=== PATIENT | female | born 1940 | race Caucasian/White ===

== ENCOUNTER → 2017-05-31 | Day surgery (SDC) | payer MEDICARE ==
[2017-05-31] VITALS (9 sets, daily range): BP systolic 116–135; BP diastolic 65–87; PULSE 60–90; RESP 13–18; O2SAT 86–100
[~2017-05-31] VITALS: Ht 157.5 cm; Wt 70.3 kg
[~2017-05-31] MED LIST: Atropine 0.4 mg/mL Inj IVPUSH PRN; BUPR100T8 PO; Bupivacaine-MPF 0.25%/EPI 30 mL Inj INJ ONE; CHOL-4 PO; CeFAZolin Inj 2 GM in IV Premix 1 EACH IV SCH; Dexamethasone 4 mg/mL Inj INTRARTICU ONE; Dexamethasone 4 mg/mL Inj ONE; EPHEDrine Sulfate 50 mg/mL Inj IVPUSH PRN; EPHEDrine/NS 5 mg/mL 5 mL Syringe ONE; ESCI10TA52 PO; GABA-502 PO; GLUT500C6 PO; HYDROcodone-APAP 5-325 mg Tablet PO ONE; HYDROmorphone 1 mg/mL Inj IVPUSH PRN; LOSA50TA37 PO; Labetalol 5 mg/mL 4 mL Inj IV PRN; Lactated Ringer's 1,000 ML IV ONE; Lactated Ringer's 1,000 ML IV SCH; Lactated Ringer's 500 ML IV PRN; MULT-1018 PO; MetoCLOpramide 5 mg/mL 2 mL Inj IVPUSH PRN; Ondansetron 2 mg/mL 2 mL Inj IVPUSH PRN; Ondansetron 2 mg/mL 2 mL Inj ONE; PREC VG; Phenylephrine 10,000 mCg/mL Inj IVPUSH PRN; Propofol 10,000 mCg/mL 20 mL Inj ONE; fentaNYL-PF 50 mCg/mL 2 mL Inj IVPUSH PRN; fentaNYL-PF 50 mCg/mL 2 mL Inj ONE
[2017-05-31] MEDS: Lactated Ringer's 1,000 ML IV SCH ×2 (06:36→08:01)
--- NOTE | 2017-05-31 08:12 | PCM.HPANE ---
Patient Data Surgeon Admitting Provider: Attending Provider:Dale Matias MD Primary Care Physician:Other,Physician Other Provider:Slivia Ley Anesthesia Reason for Visit Left Knee Pain Ht/WT & BMI Height (Feet): 5 Height (Inches): 2 Weight (Kilograms): 70.31 Body Mass Index 28.00 Allergies Coded Allergies: Sulfa (Sulfonamide Antibiotics) (Verified Allergy, Unknown, rash, 05/28/17) Uncoded Allergies: BEESTINGS (Allergy, Unknown, 05/28/17) Past Anesthesia History Anesthesia History: Denies:: Abnormal Airway, Anesthesia Reactions, Difficult Intubation, Fam Anesthesia Reaction, Fam Malignant Hypertherm, Malignant Hyperthermia Diabetes History Hx Diabetes?: No MRSA MRSA: No Medications Hypertension Medication: Yes Home Meds Incl Beta Jack: No Reported Medications Multivitamin (Multi Vitamin Daily)1 Each Tablet1 Each PO DAILY 30 Days Ref 0 05/28/17 Cholecalciferol (Vitamin D3) (Vitamin D3)10,000 Unit Agoxjwx58,000 Unit PO 2xweekly 05/28/17 Losartan Potassium 50 Mg Sinadr38 Mg PO DAILY 05/28/17 Escitalopram Oxalate 10 Mg Blklsc25 Mg PO DAILY #30 TABLET Ref 0 05/28/17 Bupropion ER 100 Mg Tablet.er100 Mg PO DAILY Ref 0 05/28/17 Discontinued Reported Medications Glutamine (l-Glutamine)500 Mg Capsule1,000 Mg PO DAILY 05/28/17 Estrogens Conjugated (Premarin)1 Gm Vagcream0.5 Gm VG 4xweekly #1 TUBE Ref 0 05/28/17 Gabapentin 300 Mg Crkralg072 Mg PO HS Ref 0 05/28/17 History History of ENT Problems?: No HEENT History: Positive for:: Cataracts (bilateral surgery) Hearing Problem (wears occasionally) Denies:: Abnormal Airway Difficult Intubation Dysphagia Glaucoma Sinus Problem TMJ Denture Type: None Teeth Condition: Within Normal Limits Hx of Heart Problems?: Yes Cardiovascular History: Positive for:: Hypertension Denies:: AICD Abdominal Aortic Aneurism Cardiac Surgery Chest Pain Edema Heart Murmur Irregular Heartbeat Pacemaker Peripheral Vascular Rheumatic Fever Other Cardiac History: > 4METS Hx of Respiratory Problem?: No Respiratory History: Denies:: Asthma COPD Dyspnea Emphysema Oxygen Administration Pneumonia Tuberculosis Use of C-PAP Machine Use of Inhalers / NEBS Hx Neurologic Problems?: No Neurological History: Denies:: Alzheimer's Disease CVA Headaches Multiple Sclerosis Parkinson's Disease Seizures TIA Hx of GI Problems?: Yes Hx of Problems?: No Genitourinary History: Denies:: Kidney Stones Urinary Tract Infection Female Hx: Denies:: Currently (post menopausal) Problems with Breasts? Skin History: Denies:: History Skin Disorders? Pressure Ulcers Hx Musculoskeletal Problems?: Yes Musculoskeletal History: Positive for:: Musculoskeletal Trauma (left knee current admission problem) Osteoarthritis (hands, ) Denies:: Back Injury Degenerative Joint Fibromyalgia Joint Replacement Myasthenia Gravis Systemic Lupus Hx of Psycho/Social Problems?: Yes Psycho Social History: Positive for:: Hx Depression Hx Surgeries?: Yes (to, melanoma) Hx Any Other Health Problems?: Yes Other History: Positive for:: Cancer (melanoma- left and right arm) Denies:: Thyroid Disease History Blood Transfusions: Positive for:: Accept Blood Products? Denies:: Blood Transfusions Hx Diabetes: No Hx Alcohol Use: YesAlcoholic Drinks Per Day: 2 drinks dailyHx Substance Use: NoHave You Smoked inLast 12 mo: No Stop/Bang P-Blood Pressure: treated: Yes B- Body Mass Index > 35 kg/m2: No A- Age over 50: Yes N- Neck Large Circumference: No G- Gender Male: No CURT Risk Assessment: Low Risk, <3 Yes Risk Assessment Category Category 1A: Patient has history of documented sleep apnea, and HAS NOT received any narcotic, sedative or anesthesia administration during this stay. Category 1B: Patient has history of documented sleep apnea, and HAS received any narcotic , sedative or anesthesia administration during this stay Category 2: Patient has SUSPECTED Obstructive Sleep Apnea, and HAS received any narcotic , sedative or anesthesia administration during this stay. Category 3: Patient has SUSPECTED Obstructive Sleep Apnea and HAS NOT received narcotic, sedative or anesthesia administration during this stay. Category 4: Outpatient in Procedural Areas with known sleep apnea or who screen positive for High Risk via the STOP/BANG questionnaire. Exam Exam General Appearance: Alert, Oriented X3, Cooperative, No Acute Distress HEENT/AIRWAY: MP 2 Lungs: Clear to Auscultation, Normal Air Movement Heart: Exam Unremarkable, Regular Rate/Rhythm, No Murmurs/Rubs/Gallops Meds/Labs/Diagnostics Admission Meds Current Medications Lactated Ringer's (Lr) 1,000 ml @ 80 mls/hr [id number] IV Last administered on t 06:36; Start 05/31/17 at 06:00 Plan Impression Patient chart reviewed, patient interviewed and anesthestic plan with risks, benefits, and alternatives discussed, and informed consent obtained. NPO per Anesth. Guidelines: Yes ASA Physical Status: ASA2 Mod Systemic Disease Anesthetic Plan: GA Bene/Risks/Altern/Consents: Yes HP Complete Prior to Induction: Yes Malachi Astudillo MD May 31, 2017 07:18
--- NOTE | 2017-05-31 10:08 | PCM.ANEP1 ---
Post Anesthesia PACU Phase 1 Assessment Vital Signs Vital Signs Date Time Temp Pulse Resp B/P Pulse Ox O2 Delivery O2 Flow Rate FiO2 05/31/17 09:38 36.4 83 18 126/70 97 Room Air 05/31/17 09:30 84 17 126/70 92 Room Air 05/31/17 09:15 36.2 90 14 116/87 93 Room Air 05/31/17 09:10 87 13 119/66 94 Room Air 05/31/17 09:05 87 18 128/73 95 Room Air 05/31/17 09:00 87 15 127/70 96 Room Air 05/31/17 08:57 36.3 85 13 129/65 100 Simple Mask 8 05/31/17 07:14 36.3 60 18 135/78 97 Room Air Anesthetic Administered: GA Level of Alertness: Awake, talking DOSHI's with Equal Strength: Yes Pain: No Nausea or Vomiting: No CV Function & Hydration Stable: Yes Airway Device: Oxygen Delivery: Simple Mask Lungs: Clear to Auscultation, Normal Air Movement PACU Phase 2 Assessment Complications: No Follow up Care: N/A Patient Instructions Provided: N/A Malachi Astudillo MD May 31, 2017 10:08
--- NOTE | 2017-05-31 20:49 | OP ---
[address] [address] OPERATIVE REPORT PATIENT: SIVA MURCIA : 1940 MR#: [id number] ADMIT: 05/31/2017 JOB ID: [id number] DATE OF SURGERY: 05/31/2017 PREOPERATIVE DIAGNOSIS(ES): Lateral meniscal tear. Status post medial compartment unicompartmental knee arthroplasty, left knee. POSTOPERATIVE DIAGNOSIS(ES): Lateral meniscal tear. Status post medial compartment unicompartmental knee arthroplasty, left knee. PROCEDURE: Left knee arthroscopic lateral meniscectomy. SURGEON: Dale Matias MD. COMPLICATIONS: None. INDICATIONS: This woman has had weeks of ongoing mechanical symptoms with audible and palpable catching in the lateral compartment. She is status post medial compartment arthroplasty. Pain is referenced to the lateral side. She elects to proceed with diagnostic arthroscopy and repair as indicated. FINDINGS AT SURGERY: Revealed the medial compartment arthroplasty to be intact with no evidence of wear. Minimal lateral compartment degenerative changes encountered. A large tear of the lateral meniscus with a bucket-handle component at the mid lateral meniscal body. PROCEDURE: The patient was prepped and draped in the usual sterile fashion. The diagnostic arthroscopy was carried out with above-mentioned findings. Following this, attention was turned to the lateral compartment where straight upbiting and backbiting baskets and a meniscal resector blade were utilized to resect all unstable lateral meniscal tissue. The patient was returned to the recovery room in stable condition following this after the portals were closed with nylon suture.
== END | disposition home or self-care (01) ==
LOC: SAS 06:34
PROVIDERS: ATTEND Orthopaedic Surgery
DX: S83.252A Bucket-handle tear of lateral meniscus, current injury, left knee, initial encounter (principal); M25.562 Pain in left knee; I10 Essential (primary) hypertension; M19.90 Unspecified osteoarthritis, unspecified site; F32.9 Major depressive disorder, single episode, unspecified; W18.39XA Other fall on same level, initial encounter; Y93.01 Activity, walking, marching and hiking; Y92.9 Unspecified place or not applicable; Y99.8 Other external cause status; Z85.820 Personal history of malignant melanoma of skin; Z96.652 Presence of left artificial knee joint
CPT/HCPCS: 29881; J0690; J1100; J1170; J1885; J2405; J3010; J7120